=== PATIENT | male | born 1940 | race Caucasian/White ===

== ENCOUNTER 2016-10-28 08:25 | Outpatient (CLI) | payer MEDICARE ==
[2016-10-28 09:02] LABS: #Basophils 0.1 thou/uL (0.0-0.2); #Eosinphils 0.4 thou/uL (0.0-0.7); #Monocytes 0.6 thou/uL (0.11-0.59); #Neutrophils 4.7 thou/uL (1.40-6.50); %Basophils 1.3 % (0.0-1.0); %Eosinophils 5.4 % (0.0-10.0); %Lymphocytes 14.9 % (21.0-51.0); %Monocytes 8.5 % (0.0-10.0); %Neutrophils 69.9 % (42.0-75.0); Hemoglobin 13.6 g/dL (14.0-18.0); Mean Platelet Volume 9.1 fL (7.4-10.4); Platelet Count 159 thou/uL (130-400); RBC Distribution Width 10.8 % (11.5-14.5); White Blood Cell (WBC) Count 6.6 thou/uL (4.8-10.8)
[2016-10-28 09:29] LABS: ALT (SGPT) 17 U/L (0-55); AST (SGOT) 24 U/L (5-34); Albumin 4.2 g/dL (3.4-4.8); Alkaline Phosphatase 59 U/L (40-150); Anion Gap 15 mmol/L (10-20); BUN (Urea Nitrogen) 11 mg/dL (8.4-25.7); Bilirubin, Direct 0.4 mg/dL (0.1-0.3); Bilirubin, Total 0.9 mg/dL (0.2-1.2); Calc. Creatinine Clearance 0 mL/min (70-130); Calcium 9.4 mg/dL (7.8-10.44); Carbon Dioxide 27 mmol/L (23-31); Cardiac Risk 1.8 (Less than 4.5); Chloride 97 mmol/L (98-107); Cholesterol 142 mg/dL (< 200 Desired); Estimated GFR-MDRD Greater than 90; Glucose 92 mg/dL (83-110); HDL Cholesterol 77 mg/dL (>60 Neg Risk); LDL Cholesterol, Calculated 55 mg/dL; Potassium 4.6 mmol/L (3.5-5.1); Protein, Total 6.7 g/dL (5.8-8.1); Sodium 134 mmol/L (136-145); Triglycerides 48 mg/dL (Less than 150)
== END 2016-10-28 08:26 ==
LOC: MADLABBHPM 08:25
PROVIDERS: ATTEND Family Medicine
DX: E87.1 Hypo-osmolality and hyponatremia (principal); I25.10 Atherosclerotic heart disease of native coronary artery without angina pectoris
CPT/HCPCS: 36415; 80048; 80061; 80076; 85025

== ENCOUNTER 2017-01-20 07:33 | Outpatient (CLI) | payer MEDICARE ==
[2017-01-20 08:02] LABS: #Basophils 0.1 thou/uL (0.0-0.2); #Eosinphils 0.3 thou/uL (0.0-0.7); #Lymphocytes 0.7 thou/uL (1.20-3.40); #Monocytes 0.4 thou/uL (0.11-0.59); #Neutrophils 2.2 thou/uL (1.40-6.50); %Basophils 2.7 % (0.0-1.0); %Eosinophils 8.3 % (0.0-10.0); %Lymphocytes 19.8 % (21.0-51.0); %Monocytes 11.1 % (0.0-10.0); %Neutrophils 58.1 % (42.0-75.0); Hemoglobin 12.7 g/dL (14.0-18.0); Mean Corpuscular HGB CONC 34.1 g/dL (32.0-36.0); Mean Corpuscular Hemoglobin 33.5 pg (27.0-31.0); Mean Corpuscular Volume 98.2 fl (80.0-94.0); Mean Platelet Volume 8.7 fL (7.4-10.4); Platelet Count 158 thou/uL (130-400); RBC Distribution Width 11.3 % (11.5-14.5); Red Blood Cell (RBC) Count 3.79 mill/uL (4.70-6.10); White Blood Cell (WBC) Count 3.7 thou/uL (4.8-10.8)
[2017-01-20 08:15] LABS: ALT (SGPT) 13 U/L (0-55); AST (SGOT) 24 U/L (5-34); Albumin 3.8 g/dL (3.4-4.8); Alkaline Phosphatase 66 U/L (40-150); Anion Gap 13 mmol/L (10-20); BUN (Urea Nitrogen) 6 mg/dL (8.4-25.7); Bilirubin, Total 0.6 mg/dL (0.2-1.2); Calc. Creatinine Clearance 0 mL/min (70-130); Calcium 8.8 mg/dL (7.8-10.44); Carbon Dioxide 27 mmol/L (23-31); Chloride 105 mmol/L (98-107); Cholesterol 114 mg/dL (< 200 Desired); Estimated GFR-MDRD Greater than 90; Globulin 2.3 g/dL (2.4-3.5); Glucose 90 mg/dL (83-110); HDL Cholesterol 58 mg/dL (>60 Neg Risk); LDL Cholesterol, Calculated 46 mg/dL; Protein, Total 6.1 g/dL (5.8-8.1); Sodium 140 mmol/L (136-145); Triglycerides 51 mg/dL (Less than 150)
[2017-01-20 09:45] LABS: Bilirubin Negative (Negative); Blood, Urine Negative (Negative); Clarity Clear (Clear); Glucose, Urine (Dipstick) Negative (Negative); Leukocyte Negative (Negative); Nitrite Negative (Negative); Protein, Urine (Dipstick) Negative (Neg-Trace); Specific Gravity, Urine 1.015 (1.005-1.030); Urobilinogen 0.2 mg/dL (0.2-1.0); pH, Urine 6.5 (5.0-9.0)
[2017-01-20 09:54] LABS: Bacteria/HPF Rare-Few HPF (None Seen); RBC/HPF 0-3 HPF (0-3); Squamous Epithelial 0-3 HPF (0-3); WBC/HPF 0-3 HPF (0-3)
== END 2017-01-20 07:34 ==
LOC: MADLABBHPM 07:33
PROVIDERS: ATTEND Family Medicine
DX: I25.10 Atherosclerotic heart disease of native coronary artery without angina pectoris (principal); I10 Essential (primary) hypertension; M15.0 Primary generalized (osteo)arthritis
CPT/HCPCS: 36415; 80053; 80061; 81001; 84443; 85025

== ENCOUNTER 2017-02-08 09:34 | Outpatient (CLI) | payer MEDICARE ==
[2017-02-08 17:44] LABS: Folate (Folic Acid) 15.5 ng/mL (7.0-31.4)
== END 2017-02-08 09:35 | disposition home or self-care (01) ==
LOC: MADLABBHPM 09:34
PROVIDERS: ATTEND Family Medicine
DX: D64.9 Anemia, unspecified (principal)
CPT/HCPCS: 36415; 82607; 82746

== ENCOUNTER 2017-04-25 07:28 | Outpatient (CLI) | payer MEDICARE ==
[2017-04-25 08:12] LABS: Eosinophils 4 % (0-10); Hemoglobin 13.1 g/dL (14.0-18.0); Lymphocytes 24 % (21-51); MDiff Complete? YES; Mean Corpuscular HGB CONC 34.1 g/dL (32.0-36.0); Mean Corpuscular Hemoglobin 33.7 pg (27.0-31.0); Mean Corpuscular Volume 98.7 fl (80.0-94.0); Mean Platelet Volume 8.8 fL (7.4-10.4); Monocytes 10 % (0-10); Neutrophil 62 % (42-75); Platelet Count 138 thou/uL (130-400); RBC Distribution Width 10.8 % (11.5-14.5); Red Blood Cell (RBC) Count 3.89 mill/uL (4.70-6.10)
[2017-04-25 08:57] LABS: White Blood Cell (WBC) Count 4.1 thou/uL (4.8-10.8)
[2017-04-25 09:07] LABS: ALT (SGPT) 13 U/L (8-55); AST (SGOT) 22 U/L (5-34); Albumin 3.8 g/dL (3.4-4.8); Anion Gap 14 mmol/L (10-20); BUN (Urea Nitrogen) 8 mg/dL (8.4-25.7); Bilirubin, Direct 0.3 mg/dL (0.1-0.3); Bilirubin, Total 0.8 mg/dL (0.2-1.2); Calc. Creatinine Clearance 0 mL/min (70-130); Calcium 8.9 mg/dL (7.8-10.44); Cardiac Risk 2.2 (Less than 4.5); Chloride 101 mmol/L (98-107); Cholesterol 124 mg/dl (< 200 Desired); Estimated GFR-MDRD Greater than 90; Glucose 87 mg/dL (83-110); HDL Cholesterol 56 mg/dL (>60 Neg Risk); LDL Cholesterol, Calculated 58 mg/dL; Potassium 4.5 mmol/L (3.5-5.1); Protein, Total 6.3 g/dL (5.8-8.1); Sodium 136 mmol/L (136-145); Triglycerides 50 mg/dL (Less than 150)
[2017-04-25 09:21] LABS: Alkaline Phosphatase 46 U/L (40-150); Carbon Dioxide 26 mmol/L (23-31)
== END 2017-04-25 07:29 | disposition home or self-care (01) ==
LOC: MADLABBHPM 07:28
PROVIDERS: ATTEND Family Medicine
DX: E78.00 Pure hypercholesterolemia, unspecified (principal); I10 Essential (primary) hypertension
CPT/HCPCS: 36415; 80048; 80061; 80076; 85025

== ENCOUNTER 2017-07-22 08:13 | Outpatient (CLI) | payer MEDICARE ==
[2017-07-22 08:33] LABS: #Basophils 0.1 thou/uL (0.0-0.2); #Eosinphils 0.3 thou/uL (0.0-0.7); #Lymphocytes 0.7 thou/uL (1.20-3.40); #Monocytes 0.5 thou/uL (0.11-0.59); #Neutrophils 4.4 thou/uL (1.40-6.50); %Basophils 1.2 % (0.0-1.0); %Eosinophils 4.4 % (0.0-10.0); %Lymphocytes 12.4 % (21.0-51.0); %Monocytes 7.9 % (0.0-10.0); Hemoglobin 12.6 g/dL (14.0-18.0); Mean Corpuscular HGB CONC 34.4 g/dL (32.0-36.0); Mean Corpuscular Hemoglobin 33.3 pg (27.0-31.0); Mean Corpuscular Volume 96.9 fl (80.0-94.0); Mean Platelet Volume 7.9 fL (7.4-10.4); Platelet Count 159 thou/uL (130-400); RBC Distribution Width 10.3 % (11.5-14.5); Red Blood Cell (RBC) Count 3.79 mill/uL (4.70-6.10); White Blood Cell (WBC) Count 5.9 thou/uL (4.8-10.8)
[2017-07-22 09:50] LABS: ALT (SGPT) 12 U/L (8-55); AST (SGOT) 21 U/L (5-34); Albumin 3.8 g/dL (3.4-4.8); Anion Gap 12 mmol/L (10-20); BUN (Urea Nitrogen) 7 mg/dL (8.4-25.7); Bilirubin, Direct 0.5 mg/dL (0.1-0.3); Bilirubin, Total 1.2 mg/dL (0.2-1.2); Calc. Creatinine Clearance 0 mL/min (70-130); Calcium 8.9 mg/dL (7.8-10.44); Carbon Dioxide 27 mmol/L (23-31); Cardiac Risk 1.9 (Less than 4.5); Chloride 92 mmol/L (98-107); Cholesterol 115 mg/dl (< 200 Desired); Estimated GFR-MDRD Greater than 90; Glucose 103 mg/dL (83-110); HDL Cholesterol 59 mg/dL (>60 Neg Risk); LDL Cholesterol, Calculated 46 mg/dL; Potassium 5.1 mmol/L (3.5-5.1); Protein, Total 6.3 g/dL (5.8-8.1); Sodium 126 mmol/L (136-145); Triglycerides 48 mg/dL (Less than 150)
[2017-07-22 10:12] LABS: Alkaline Phosphatase 51 U/L (40-150)
== END 2017-07-22 08:14 | disposition home or self-care (01) ==
LOC: MADLABBHPM 08:13
PROVIDERS: ATTEND Family Medicine
DX: D64.9 Anemia, unspecified (principal); I10 Essential (primary) hypertension; E78.00 Pure hypercholesterolemia, unspecified
CPT/HCPCS: 36415; 80048; 80061; 80076; 85025

== ENCOUNTER 2018-01-21 08:34 | Emergency (ER) | payer MEDICARE ==
[2018-01-21] MEDS ORDERED: Indomethacin 25 mg Capsule ONE (11:04)
--- NOTE | 2018-01-21 11:46 | RAD ---
RIGHT HAND 3 VIEWS: HISTORY: Pain. COMPARISON: None. FINDINGS: No fracture. No malalignment. There are erosions of the distal radial ulnar joint as well as the ra diocarpal joint. Moderate vascular calcifications. Calcifications are present in the triangular fibrocartilage. IMPRESSION: Erosions of the distal radial ulnar joint and radiocarpal joint with narrowing can be seen with infla mmatory arthritis such as rheumatoid. Infection is also a possibility versus posttraumatic secondary osteoarthritis. POS: [facility]
== END 2018-01-21 11:23 | disposition home or self-care (01) ==
LOC: MADERS 08:34
DX: M06.9 Rheumatoid arthritis, unspecified (principal); I10 Essential (primary) hypertension
CPT/HCPCS: 96372; J1040

== ENCOUNTER 2018-02-23 08:46 | Outpatient (CLI) | payer MEDICARE ==
--- NOTE | 2018-02-23 10:35 | RAD ---
LEFT SHOULDER THREE VIEWS: HISTORY: Fall. Left shoulder injury. FINDINGS: Acromioclavicular and glenohumeral alignment are maintained. No acute fracture, dislocation, or aggr essive osseous erosions. IMPRESSION: No acute osseous abnormalities are demonstrated. POS: [facility]
== END 2018-02-23 08:47 | disposition home or self-care (01) ==
LOC: MADRAD 08:46
PROVIDERS: ATTEND Family Medicine
DX: M25.512 Pain in left shoulder (principal)